=== PATIENT | male | born 1970 | race Two or more races ===

== ENCOUNTER 2018-01-07 16:34 | Emergency (ER) | payer OTHER ==
[~2018-01-07] VITALS: Ht 170.2 cm; Wt 79.4 kg
[2018-01-07 19:06] VITALS: BP 122/68
== END 2018-01-07 19:00 | disposition home or self-care (01) ==
LOC: EEVIPCON 16:34 → FSED 16:34
DX: R10.31 Right lower quadrant pain (principal); K40.91 Unilateral inguinal hernia, without obstruction or gangrene, recurrent
CPT/HCPCS: 99282